=== PATIENT | female | born 1985 ===

== ENCOUNTER 2018-07-16 09:50 | Emergency (ER) | payer OTHER ==
[2018-07-16 09:59] VITALS: O2SAT 97
[2018-07-16] MEDS: Sodium Chloride 0.9% 1,000 ML IV STA (11:37)
--- NOTE | 2018-07-16 11:57 | ED PDOC ---
HPI: Abdomen Time Seen by Provider: 07/16/18 10:28 Chief Complaint (Nursing): GI Problem Chief Complaint (Provider): Vomiting, Headache, Diarrhea History Per: Patient History/Exam Limitations: no limitations Onset/Duration Of Symptoms: Days (x10) Current Symptoms Are (Timing): Still Present Additional Complaint(s): 33 year old female presenting for evaluation of vomiting, headache, and diarrhea x10 days. Patient states her symptoms began 10 days ago and reports 2-3 episodes of non-bloody, non-bilious vomiting per day, but 7 episodes this morning. Patient reports headaches everydat that are usually resolved after taking Ibuprofen 600mg at night. Patient reports an episode of non-bloody diarrhea 3 days ago. Patient otherwise denies any fevers, chills, dysuria, current abdominal pain, back pain, or shortness of breath. Patient denies any sick contacts and reports 2 healthy children and a at home Patient does not currently work. Past Medical History Reviewed: Historical Data, Nursing Documentation, Vital Signs Vital Signs: Last Vital Signs Temp 97.3 F L 07/16/18 09:55 Pulse 70 07/16/18 09:55 Resp 19 07/16/18 09:55 BP 113/81 07/16/18 09:55 Pulse Ox 97 07/16/18 09:55 - Medical History PMH: Anemia - Family History Family History: States: No Known Family Hx - Immunization History Hx Tetanus Toxoid Vaccination: No Hx Influenza Vaccination: No Hx Pneumococcal Vaccination: No - Home Medications Home Medications: Ambulatory Orders Medication Instructions Recorded Famotidine [Pepcid] 20 mg PO BID #28 tab 07/16/18 Ondansetron [Zofran] 4 mg PO Q8H #9 tab 07/16/18 - Allergies Allergies/Adverse Reactions: Allergies Allergy/AdvReac Type Severity Reaction Status Date / Time No Known Allergies Allergy Verified 07/16/18 09:59 Review of Systems ROS Statement: Except As Marked, All Systems Reviewed And Found Negative Constitutional: Negative for: Fever, Chills Cardiovascular: Negative for: Chest Pain Respiratory: Negative for: Shortness of Breath Gastrointestinal: Positive for: Nausea, Vomiting, Diarrhea. Negative for: Abdominal Pain Musculoskeletal: Negative for: Back Pain Neurological: Positive for: Headache Physical Exam - Reviewed Nursing Documentation Reviewed: Yes Vital Signs Reviewed: Yes - Physical Exam Appears: Positive for: Non-toxic, No Acute Distress Head Exam: Positive for: ATRAUMATIC, NORMAL INSPECTION, NORMOCEPHALIC Skin: Positive for: Normal Color, Warm, Dry. Negative for: Rash Eye Exam: Positive for: EOMI, Normal appearance, PERRL ENT: Positive for: Other (dry oral mucosa) Neck: Positive for: Normal, Painless ROM Cardiovascular/Chest: Positive for: Regular Rate, Rhythm. Negative for: Murmur Respiratory: Positive for: Normal Breath Sounds. Negative for: Respiratory Distress Gastrointestinal/Abdominal: Positive for: Normal Exam, Soft. Negative for: Tenderness Back: Positive for: Normal Inspection. Negative for: L CVA Tenderness, R CVA Tenderness, Vertebral Tenderness Extremity: Positive for: Normal ROM. Negative for: Pedal Edema, Deformity Neurologic/Psych: Positive for: Alert, Oriented (x3). Negative for: Motor/Sens ory Deficits - Laboratory Results Result Diagrams: 07/16/18 12:40 07/16/18 12:40 - ECG O2 Sat by Pulse Oximetry: 97 (RA) Pulse Ox Interpretation: Normal Medical Decision Making Medical Decision Makin Impression: gastroenteritis Plan: -CMP -Lipase -Urine dip -1L NS IVB -Pepcid 20mg IVP -Toradol 30mg IVP -Zofran 4mg IVP -Reevaluation --------- Scribe Attestation: Documented by Jt Paz, acting as a scribe for Hayley White MD. Provider Scribe Attestation: All medical record entries made by the Scribe were at my direction and p ersonally dictated by me. I have reviewed the chart and agree that the record accurately reflects my personal performance of the history, physical exam, medical decision making, and the department course for this patient. I have also personally directed, reviewed, and agree with the discharge instructions and disposition. 1.00p - patient is feeling better. labs reviewed and discussed with patient and her friend. Will discharge. Disposition - Clinical Impression Clinical Impression: Gastroenteritis - Patient ED Disposition Is Patient to be Admitted: No Doctor Will See Patient In The: Office Counseled Patient/Family Regarding: Diagnosis, Need For Followup, Rx Given - Disposition Referrals: [facility] [Outside] [facility] [Outside] Disposition: Routine/Home Disposition Time: 13:00 Condition: IMPROVED Prescriptions: Famotidine [Pepcid] 20 mg PO BID #28 tab Ondansetron [Zofran] 4 mg PO Q8H #9 tab Instructions: Gastroenteritis (ED) Forms: [employer] (Danish), [employer] (Jordanian), [facility] ED School/Work Excuse Print Language: FRISIAN - POA Present On Arrival: None
[2018-07-16 12:48] LABS: BASO % 0.2 % (0.0-2.0); EOS % 0.2 % (0.0-4.0); HEMOGLOBIN 14.1 g/dL (12.0-16.0); LYMPH # 1.5 K/uL (1.0-4.3); LYMPH % 17.4 % (20.0-40.0); MEAN CORPUSCULAR HGB CONC 33.3 g/dL (33.0-37.0); MEAN PLATELET VOLUME 7.6 fl (7.2-11.7); MONO # 0.3 K/uL (0.0-0.8); MONO % 3.8 % (0.0-10.0); NEUT # 6.8 K/uL (1.8-7.0); NEUT % 78.4 % (50.0-75.0); NRBC % 0.2 % (0.0-0.0); RBC 4.69 Mil/uL (3.80-5.20); RED CELL DISTRIBUTION WIDTH 13.6 % (11.5-14.5); WHITE BLOOD COUNT 8.6 K/uL (4.8-10.8)
[2018-07-16 13:05] LABS: ALB/GLOB RATIO 1.3 (1.0-2.1); ALBUMIN 4.4 g/dL (3.5-5.0); ALT/SGPT 30 U/L (9-52); AST/SGOT 32 U/L (14-36); BLOOD UREA NITROGEN 8 mg/dl (7-17); CALCIUM 9.3 mg/dL (8.4-10.2); GFR NON-AFRICAN AMERICAN > 60; LIPASE 66 U/L (23-300)
[2018-07-16 13:41] VITALS: BP 117/71; PULSE 73; RESP 18; TEMP 98.1
== END 2018-07-16 13:45 | disposition home or self-care (01) ==
LOC: H.ER 09:50
DX: K52.9 Noninfective gastroenteritis and colitis, unspecified (principal)
CPT/HCPCS: 80053; 81025; 83690; 85025; 96361; 96374; 96375; 99284; J1885; J2405; J7030